=== PATIENT | female | born 1985 | race Caucasian/White ===

== ENCOUNTER → 2018-11-01 | Outpatient (CLI) | payer BC ==
[2016-04-20 16:59] VITALS: BMI 32.3
[~2018-11-01] MED LIST: ACE3 PO; ACET-1966 PO; ACET-3017 PO; CETI10CA8 PO; DOCU240C67 PO; ESCI5TAB10 PO; IBUP600T22 PO; Lanolin TP; NORG1TAB5 PO; ONDA4TAB97 PO; PRE20 PO; PRED-1 PO; PREN-123 PO; PREN-127 PO
[2018-11-01 09:30] LABS: PLATELET COUNT, AUTOMATED 211 K/uL (150-450)
== END ==
LOC: LAB 08:14
PROVIDERS: ATTEND Obstetrics & Gynecology
DX: Z34.91 Encounter for supervision of normal pregnancy, unspecified, first trimester (principal); B96.89 Other specified bacterial agents as the cause of diseases classified elsewhere
CPT/HCPCS: 36415; 81001; 85025; 86592; 86703; 86762; 86850; 86900; 86901; 87088; 87340

== ENCOUNTER → 2018-11-15 | Outpatient (CLI) | payer BC ==
[2016-04-20 16:59] VITALS: BMI 32.3
== END ==
LOC: LAB 11:06
PROVIDERS: ATTEND Obstetrics & Gynecology
DX: Z34.91 Encounter for supervision of normal pregnancy, unspecified, first trimester (principal)
CPT/HCPCS: 87491; 87591

== ENCOUNTER 2018-12-14 09:01 | Emergency (ER) | payer BC ==
[2016-04-20 16:59] VITALS: Wt 71.7 kg
[~2018-12-14 09:01] MED LIST changes: +FLUT16SP19 NS
[2018-12-14] MEDS ORDERED: ONDANSETRON 4 MG/2 ML VIAL IVP ONE ×2 (09:05→10:30)
[2018-12-14] MEDS ORDERED: NS(*) 0.9% 1000 ML BAG 1,000 ML IV ONE ×2 (09:05)
--- NOTE | 2018-12-14 09:18 | ER Report ---
History and Physical Time Seen By MD: 09:14 Hx. of Stated Complaint: ABD PAIN WITH N/V/D HPI/ROS CHIEF COMPLAINT: Vomiting abdominal pain HISTORY OF PRESENT ILLNESS: 33-year-old female otherwise healthy 3 para 2 currently gestation twins 13 weeks comes emergency Department with 1 day of vomiting and diarrhea and abdominal cramping associated with the vomiting and diarrhea. Patient states that her had the exact same symptoms at home diagnosis stomach flu last 24-48 hours and subsequently resolved he's feeling better his symptoms started 2 days before hers. Has no vaginal bleeding or discharge no chest pain or shortness of breath no fever chills having both diarrhea and vomiting patient is able unable to keep up with by mouth fluids and came to the ER for evaluation. Patient has no additional complaints REVIEW OF SYSTEMS: Respiratory: No cough, no dyspnea. Cardiovascular: No chest pain, no palpitations. Gastrointestinal: Vomiting diarrhea abdominal cramping Musculoskeletal: No back pain. Remainder of the 14 system rev: Yes Allergies: Coded Allergies: minocycline (Verified Allergy, Severe, SOB/RASH, 07/20/14) Sulfa (Sulfonamide Antibiotics) (Verified Allergy, Mild, RASH, 07/20/14) amoxicillin (Verified Allergy, Mild, RASH, 07/20/14) Home Meds Active Scripts Fluticasone Prop 50 Mcg Ns (FLONASE 50 MCG NS) 16 Gm [place].susp, 2 SPRAYS NS QDAY, #1 BOT 5 Refills Prov:HENRY GRIGGS MD 12/10/18 Ondansetron Hcl (ZOFRAN) 4 Mg Tablet, 4 MG PO Q6H PRN for NAUSEA/VOMITING, #30 TAB Prov:HENRY GRIGGS MD 11/01/18 Escitalopram Oxalate (LEXAPRO) 5 Mg Tablet, 5 MG PO QDAY, #30 TAB 1 Refill Prov:HENRY GRIGGS MD 03/28/18 Reported Medications Cetirizine Hcl (ZYRTEC) 10 Mg Capsule, 10 MG PO QDAY, CAPSULE 04/20/16 Vits W-Ca,Fe,Fa(<1MG) ( VITAMINS) 1 Each Tablet, 1 EACH PO DAILY, TAB 04/20/16 Reviewed Nurses Notes: Yes Old Medical Records Reviewed: Yes Hx Smoking: No Smoking Status: Never Smoker Exposure to Second Hand Smoke?: No Hx Substance Use Disorder: No Hx Alcohol Use: No Constitutional Vital Sign - Last 24 Hours 12/14/18 09:11 Temp 98.3 Pulse 92 Resp 12 B/P (MAP) 110/77 Pulse Ox 99 O2 Delivery Room Air Physical Exam General Appearance: The patient is alert, has no immediate need for airway protection and no current signs of toxicity. [ ] Eyes: Pupils equal and round no injection. Respiratory: Chest is non tender, lungs are clear to auscultation. Cardiac: regular rate and rhythm [ ] Gastrointestinal: Abdomen is soft and non tender, no masses, bowel sounds normal. Musculoskeletal: Neck: Neck is supple and non tender. Extremities have full range of motion and are non tender. Skin: No rashes or lesions. [ ] DIFFERENTIAL DIAGNOSIS: After history and physical exam differential diagnosis was considered for enteritis gastroenteritis stomach flu Medical Decision Making Data Points Result Diagram: 12/14/1816 12/14/18 0916 Laboratory Hematology Test 12/14/18 09:16 White Blood Count 11.0 k/uL (4.5-11.0) Red Blood Count 4.66 M/uL (4.17-5.56) Hemoglobin 14.5 g/dL (12.0-16.0) Hematocrit 41.6 % (34.0-47.0) Mean Corpuscular Volume 89.3 fL (80.0-96.0) Mean Corpuscular Hemoglobin 31.0 pg (26.0-33.0) Mean Corpuscular Hemoglobin Concent 34.7 g/dL (32.0-36.0) Red Cell Distribution Width 13.6 % (11.5-14.5) Platelet Count 200 K/uL (150-450) Mean Platelet Volume 7.6 fL (7.2-11.1) Neutrophils (%) (Auto) 85.9 % (39.4-72.5) H Lymphocytes (%) (Auto) 10.5 % (17.6-49.6) L Monocytes (%) (Auto) 3.1 % (4.1-12.4) L Eosinophils (%) (Auto) 0.1 % (0.4-6.7) L Basophils (%) (Auto) 0.4 % (0.3-1.4) Nucleated RBC Relative Count (auto) 0.0 /100WBC Neutrophils # (Auto) 9.5 K/uL (2.0-7.4) H Lymphocytes # (Auto) 1.2 K/uL (1.3-3.6) L Monocytes # (Auto) 0.3 K/uL (0.3-1.0) Eosinophils # (Auto) 0.0 K/uL (0.0-0.5) Basophils # (Auto) 0.0 K/uL (0.0-0.1) Nucleated RBC Absolute Count (auto) 0.01 K/uL Chemistry Test 12/14/18 09:16 Sodium Level 138 mmol/L (137-145) Potassium Level 3.7 mmol/L (3.5-5.0) Chloride Level 105 mmol/L (98-107) Carbon Dioxide Level 20 mmol/L (22-31) Blood Urea Nitrogen 4 mg/dl (7-18) Creatinine 0.50 mg/dl (0.52-1.04) Glomerular Filtration Rate Calc > 60.0 Random Glucose 99 mg/dl (75-110) Calcium Level 9.3 mg/dl (8.4-10.2) Total Bilirubin 0.5 mg/dl (0.2-1.3) Aspartate Amino Transf (AST/SGOT) 21 U/L (0-35) Alanine Aminotransferase (ALT/SGPT) 36 U/L (0-56) Alkaline Phosphatase 108 U/L (0-126) Total Protein 7.0 g/dl (6.3-8.2) Albumin 3.9 g/dl (3.5-5.0) Lipase 25 U/L (23-300) Human Chorionic Gonadotropin, Quant 86864 mIU/ml Urinalysis Test 12/14/18 09:02 Urine Color Yellow Urine Clarity Slightly-cloudy Urine pH 5.0 pH (4.8-9.5) Urine Specific [place] 1.014 Urine Protein Negative mg/dL (NEGATIVE) Urine Glucose (UA) Negative mg/dL (NEGATIVE) Urine Ketones 80 mg/dL (NEGATIVE) Urine Blood Negative (NEGATIVE) Urine Nitrite Negative (NEGATIVE) Urine Bilirubin Negative (NEGATIVE) Urine Urobilinogen Negative mg/dL (0.2-1.9) Urine Leukocyte Esterase Trace (NEGATIVE) Urine RBC 2 /HPF (0-2/HPF) Urine WBC 4 /HPF (0-5/HPF) Urine Squamous Epithelial Cells Many /LPF (</=FEW) Urine Bacteria Few /HPF (NONE-FEW) Urine Mucus Few /HPF (NONE-FEW) ED Course/Re-evaluation ED Course ED course 33-year-old female 3 para 2 with twins gestation 13 weeks comes in with vomiting and diarrhea consistent with a probable gastroenteritis she shows some prerenal azotemia on her labs fluid resuscitation initiated antiemetics given she feels significantly better cramping subsided she feels good and feels like she can go home could be hyperemesis gravidarum most likely due to gastroenteritis of viral etiology patient be discharged no antiemetics given 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
[2018-12-14 09:30] LABS: PLATELET COUNT, AUTOMATED 200 K/uL (150-450)
[2018-12-14 10:30] VITALS: BP 98/52
[2018-12-15] MEDS ORDERED: ONDA4TAB9 PO (09:57)
== END 2018-12-14 10:52 | disposition home or self-care (01) ==
LOC: ER 09:04
DX: O99.611 Diseases of the digestive system complicating pregnancy, first trimester (principal); K52.9 Noninfective gastroenteritis and colitis, unspecified; Z3A.13 13 weeks gestation of pregnancy
CPT/HCPCS: 81001; 83690; 84702; 85025; 96361; 96374; 96375; 99283; J2405; J7030; 82040; 82247; 82310; 82374; 82435; 82565; 82947; 84075; 84132; 84155; 84295; 84450; 84460; 84520; 96376

== ENCOUNTER 2018-12-15 19:28 | Observation (INO) | payer BC ==
[~2018-12-15] VITALS: Ht 170.2 cm; Wt 71.2 kg
[~2018-12-15 19:28] MED LIST changes: +ONDA4TAB9 PO
--- NOTE | 2018-12-15 19:35 | ER Report ---
History and Physical Time Seen By MD: 19:32 HPI/ROS CHIEF COMPLAINT: vomiting, abdominal cramping, diarrhea. HISTORY OF PRESENT ILLNESS: This is a 33 year old female. 48 hours of upper abdominal cramping, diarrhea, vomiting. Has been to the ER twice in the last 48 hours, this is her 3rd visit. Thought to be viral gastroenteritis; her recently had similar. She is a 14 week gestational twin . No vaginal bleeding or leakage of fluid. No fevers. Tried Zofran ODT at home but still cannot keep anything down. Mild elevation of white count this morning with left shift, Ketones in urine, but no signs of infection. Metabolic panel with slight decrease in bicarb. Allergies: Coded Allergies: minocycline (Verified Allergy, Severe, SOB/RASH, 12/15/18) Sulfa (Sulfonamide Antibiotics) (Verified Allergy, Mild, RASH, 12/15/18) amoxicillin (Verified Allergy, Mild, RASH, 12/15/18) Home Meds Active Scripts Fluticasone Prop 50 Mcg Ns (FLONASE 50 MCG NS) 16 Gm [place].susp, 2 SPRAYS NS QDAY, #1 BOT 5 Refills Prov:HENRY GRIGGS MD 12/10/18 Ondansetron Hcl (ZOFRAN) 4 Mg Tablet, 4 MG PO Q6H PRN for NAUSEA/VOMITING, #30 TAB Prov:HENRY GRIGGS MD 11/01/18 Escitalopram Oxalate (LEXAPRO) 5 Mg Tablet, 5 MG PO QDAY, #30 TAB 1 Refill Prov:HENRY GRIGGS MD 03/28/18 Reported Medications Cetirizine Hcl (ZYRTEC) 10 Mg Capsule, 10 MG PO QDAY, CAPSULE 04/20/16 Vits W-Ca,Fe,Fa(<1MG) ( VITAMINS) 1 Each Tablet, 1 EACH PO DAILY, TAB 04/20/16 Discontinued Scripts Ondansetron 4 Mg Odt (ONDANSETRON 4 MG ODT) 4 Mg Tab.rapdis, 4 MG PO ONCE for 7 Days, #20 TAB Prov:FAISAL CÁRDENAS MD 12/15/18 Reviewed Nurses Notes: Yes Hx Smoking: No Smoking Status: Never Smoker Exposure to Second Hand Smoke?: No Hx Substance Use Disorder: No Hx Alcohol Use: No Constitutional Vital Sign - Last 24 Hours 12/15/18 19:34 Temp 98.3 Pulse 71 Resp 20 B/P (MAP) 113/67 Pulse Ox 94 Physical Exam General Appearance: Alert, no distress. Eyes: Pupils equal and round no injection. ENT: Normal oral mucosa. Moist mucous membranes. Respiratory: Lungs are clear to auscultation. Cardiac: regular rate and rhythm, normal peripheral perfusion. Gastrointestinal: Abdomen is soft, tender in epigastric and left upper abdomen, no lower tenderness. No CVA tenderness. Musculoskeletal: Non tender. Skin: No rashes or lesions. Neuro: Alert and oriented x3, no focal deficits although a little lightheaded DIFFERENTIAL DIAGNOSIS: After history and physical exam differential diagnosis was considered for possible continued gastroenteritis with failed treatment at home, possible combination of this with the causing the increased vomiting and inability keep anything down. Medical Decision Making Data Points Result Diagram: 12/15/18194312/15/181943 Laboratory Hematology Test 12/15/18 19:44 White Blood Count 13.5 k/uL (4.5-11.0) H Red Blood Count 4.39 M/uL (4.17-5.56) Hemoglobin 13.6 g/dL (12.0-16.0) Hematocrit 39.3 % (34.0-47.0) Mean Corpuscular Volume 89.5 fL (80.0-96.0) Mean Corpuscular Hemoglobin 31.0 pg (26.0-33.0) Mean Corpuscular Hemoglobin Concent 34.7 g/dL (32.0-36.0) Red Cell Distribution Width 13.9 % (11.5-14.5) Platelet Count 215 K/uL (150-450) Mean Platelet Volume 7.8 fL (7.2-11.1) Neutrophils (%) (Auto) 87.8 % (39.4-72.5) H Lymphocytes (%) (Auto) 8.0 % (17.6-49.6) L Monocytes (%) (Auto) 4.0 % (4.1-12.4) L Eosinophils (%) (Auto) 0.1 % (0.4-6.7) L Basophils (%) (Auto) 0.1 % (0.3-1.4) L Nucleated RBC Relative Count (auto) 0.1 /100WBC Neutrophils # (Auto) 11.9 K/uL (2.0-7.4) H Lymphocytes # (Auto) 1.1 K/uL (1.3-3.6) L Monocytes # (Auto) 0.5 K/uL (0.3-1.0) Eosinophils # (Auto) 0.0 K/uL (0.0-0.5) Basophils # (Auto) 0.0 K/uL (0.0-0.1) Nucleated RBC Absolute Count (auto) 0.01 K/uL Chemistry Test 12/15/18 19:44 Sodium Level 137 mmol/L (137-145) Potassium Level 3.5 mmol/L (3.5-5.0) Chloride Level 105 mmol/L (98-107) Carbon Dioxide Level 20 mmol/L (22-31) Blood Urea Nitrogen 3 mg/dl (7-18) Creatinine 0.50 mg/dl (0.52-1.04) Glomerular Filtration Rate Calc > 60.0 Random Glucose 100 mg/dl (75-110) Calcium Level 8.8 mg/dl (8.4-10.2) Total Bilirubin 0.4 mg/dl (0.2-1.3) Aspartate Amino Transf (AST/SGOT) 22 U/L (0-35) Alanine Aminotransferase (ALT/SGPT) 38 U/L (0-56) Alkaline Phosphatase 90 U/L (0-126) Total Protein 6.3 g/dl (6.3-8.2) Albumin 3.4 g/dl (3.5-5.0) Urinalysis Test 12/15/18 19:31 Urine Color Yellow Urine Clarity Clear Urine pH 5.0 pH (4.8-9.5) Urine Specific [place] 1.016 Urine Protein Negative mg/dL (NEGATIVE) Urine Glucose (UA) Negative mg/dL (NEGATIVE) Urine Ketones 80 mg/dL (NEGATIVE) Urine Blood Negative (NEGATIVE) Urine Nitrite Negative (NEGATIVE) Urine Bilirubin Negative (NEGATIVE) Urine Urobilinogen Negative mg/dL (0.2-1.9) Urine Leukocyte Esterase Negative (NEGATIVE) Urine RBC <1 /HPF (0-2/HPF) Urine WBC 2 /HPF (0-5/HPF) Urine Squamous Epithelial Cells Many /LPF (</=FEW) Urine Bacteria Few /HPF (NONE-FEW) Urine Mucus Few /HPF (NONE-FEW) ED Course/Re-evaluation Clinical Indication for ER IV: Hydration, IV Access ED Course White count mild elevation, essentially unchanged from this morning, with similar left shift. Mild decreased bicarb, BUN/Cr and other electrolytes okay. No sign of urinary tract infection. Patient received a liter of normal saline and Zofran. Still with cramping, so given IV Acetaminophen. Discussed care with Dr. Pyle, who accepted the patient for admission. Decision to Disposition Date: Dec 15, 2018 Decision to Disposition Time: 20:56 Depart Departure Latest Vital Signs Vital Signs Date Time Temp Pulse Resp B/P (MAP) Pulse Ox O2 Delivery O2 Flow Rate FiO2 12/15/18 19:34 98.3 71 20 113/67 94 Impression: Primary Impression: Nausea & vomiting Condition: Improved Disposition: Admitted from ER Referrals: IVETTE AGUILAR PA-C (PCP) Problem Qualifiers Primary Impression: Nausea & vomiting Vomiting type: unspecified Vomiting Intractability: non-intractable Elian lified Codes: R11.2 - Nausea with vomiting, unspecified HUNTER RODRIGUEZ MD Dec 15, 2018 19:35
[2018-12-15] MEDS ORDERED: NS(*) 0.9% 1000 ML BAG 1,000 ML IV ONE (20:05)
[2018-12-15] MEDS ORDERED: ONDANSETRON 4 MG/2 ML VIAL IVP ONE (20:05)
[2018-12-15 20:10] LABS: PLATELET COUNT, AUTOMATED 215 K/uL (150-450)
[2018-12-15] MEDS ORDERED: ACETAMINOPHEN(*)1000 MG/100 ML 100 ML IVPB ONE (21:10)
[2018-12-15] MEDS ORDERED: ACETAMINOPHEN 325 MG TAB PO PRN (21:30)
[2018-12-15] MEDS ORDERED: FAMOTIDINE(*) 20MG/50ML PREMIX 50 ML IVPB ONE (21:30)
[2018-12-15 22:01] VITALS: BP 106/68
[2018-12-15] MEDS: diphenhydrAMINE 50 MG/ML VIAL IVP SCH (22:28)
[2018-12-15] MEDS: DLR(*) 1000 ML BAG 1,000 ML IV SCH (22:28)
[2018-12-15] MEDS: PROMETHAZINE 25 MG/ML 1 ML AMP IVP SCH (22:28)
[2018-12-16] MEDS: ONDANSETRON 4 MG/2 ML VIAL IVP SCH ×4 (01:24→19:30)
[2018-12-16] MEDS ORDERED: ONDANSETRON 4 MG/2 ML VIAL IVP ONE (02:25)
[2018-12-16] MEDS: diphenhydrAMINE 50 MG/ML VIAL IVP SCH ×4 (03:22→23:02)
[2018-12-16 03:30] VITALS: BP 109/71
[2018-12-16] MEDS: PROMETHAZINE 25 MG/ML 1 ML AMP IVP SCH ×3 (05:18→21:40)
[2018-12-16] MEDS: DLR(*) 1000 ML BAG 1,000 ML IV SCH ×3 (05:18→19:10)
[2018-12-16 08:00] VITALS: BP 89/57
[2018-12-16 08:40] VITALS: Ht 170.2 cm; Wt 71.2 kg
--- NOTE | 2018-12-16 09:14 | History & Physical ---
History of Present Illness Age of Patient: 33 : 3 Para or TPAL: 2 Estimated Gestational Age: 14 Chief Complaint Nausea, vomiting, epigastric pain x 48 hours, 14 week alexandro twin History of Present Illness PT reports that she has had progressively worsening n/v/epigastric pain x 48 hours. She has been seen in the ED 3 times over the weekend. Her was recently ill with similar symptoms. She denies fever, pelvic pain or bleeding. She has been using oral zofran with no improvement. Pt has not had this type of n/v in the until 2 days ago. She has no h/o hyperemesis. 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 They live also with their 3 year-old son. Denies use of alcohol, tobacco, or illicit drugs. Family History: Patient reports no known family medical history. Med Rec Home Meds Active Scripts Fluticasone Prop 50 Mcg Ns (FLONASE 50 MCG NS) 16 Gm [place].susp, 2 SPRAYS NS QDAY, #1 BOT 5 Refills Prov:HENRY GRIGGS MD 12/10/18 Ondansetron Hcl (ZOFRAN) 4 Mg Tablet, 4 MG PO Q6H PRN for NAUSEA/VOMITING, #30 TAB Prov:HERNY GRIGGS MD 11/01/18 Escitalopram Oxalate (LEXAPRO) 5 Mg Tablet, 5 MG PO QDAY, #30 TAB 1 Refill Prov:HENRY GRIGGS MD 03/28/18 Reported Medications Cetirizine Hcl (ZYRTEC) 10 Mg Capsule, 10 MG PO QDAY, CAPSULE 04/20/16 Vits W-Ca,Fe,Fa(<1MG) ( VITAMINS) 1 Each Tablet, 1 EACH PO DAILY, TAB 04/20/16 Discontinued Scripts Ondansetron 4 Mg Odt (ONDANSETRON 4 MG ODT) 4 Mg Tab.rapdis, 4 MG PO ONCE for 7 Days, #20 TAB Prov:FAISAL CÁRDENAS MD 12/15/18 Review of Systems Constitutional: Weight Gain; No Fever, No Weight Loss, No Chills, No Night Sweats Gastrointestinal: Nausea, Vomiting, Diarrhea, Abdominal Pain (epigastric) Genitourinary: No Dysuria Psychiatric: Anxiety Exam General Exam Vital Signs Vital Signs Date Time Temp Pulse Resp B/P (MAP) Pulse Ox O2 Delivery O2 Flow Rate FiO2 12/16/18 08:00 98.0 79 16 89/57 (68) 96 Room Air General Apperance: Alert/Awake/No Acute Distress Neuro: No Gross deficits Respiratory: No Respiratory Distress Abdomen: Soft, Non-Tender, Non-Distended Extremities: No Cyanosis,Clubbing or Edema Integumentary: Skin Intact without Lesions or Rash Psychological: Alert & Oriented X3, Appropriate Mood & Affect Vaginal Discharge/Fluid?: Other (SVE deferred) Medical Decision Making Data Points Result Diagram: 12/15/18194312/15/181943 Pre-Admit Course Medical Record Review: Yes Assessment and Plan Problems: (1) Viral gastroenteritis Status: Acute Assessment & Plan: Supportive care, IVF, NPO, antiemetics. Once nausea subsides will try trial diet. Will also check lipase level as pt has persistent epigast neo pain. (2) , twins, antepartum Assessment & Plan: Will do limited BSUS today to check FHTs. No intervention for at this time. Problem Qualifiers (1) , twins, antepartum: Multiple gestation type: dichorionic and diamniotic Qualified Codes: O30.049 - Twin , dichorionic/diamniotic, unspecified trimester LACEY FINNEGAN DO Dec 16, 2018 09:05
--- NOTE | 2018-12-16 09:38 | OB/GYN Progress Note ---
OB Objective Physical Exam Vital Signs Date Time Temp Pulse Resp B/P (MAP) Pulse Ox O2 Delivery O2 Flow Rate FiO2 12/16/18 08:00 98.0 79 16 89/57 (68) 96 Room Air Intake and Output 12/16/18 07:02 Intake Total 1150 ml Output Total 500 ml Balance 650 ml Intake IV Total 1150 ml Output Urine Total 450 ml Emesis 50 ml # Voids 1 # Emes[place] 1 General Appearance: Alert/Awake/No Acute Distress Neurological: No Gross deficits Respiratory: No Respiratory Distress Extremities: No Cyanosis,Clubbing or Edema Integumentary: Skin Intact without Lesions or Rash Psychological: Alert & Oriented X3, Appropriate Mood & Affect Result Diagram: 12/15/18194312/15/181943 Imaging Limited BSUS performed by Dr. Pyle showing viable alexandro with active heart rates and good movement from both A and B. A was cephalic, B also cephalic. Normal appearing amniotic fluid levels, normal appearing placenta. Assessment and Plan Problems: (1) Viral gastroenteritis Status: Acute Assessment & Plan: Lipase level pending, continue supportive care at this time. (2) , twins, antepartum Problem Qualifiers (1) , twins, antepartum: Multiple gestation type: dichorionic and diamniotic Qualified Codes: O30.049 - Twin , dichorionic/diamniotic, unspecified trimester LACEY PYLE DO Dec 16, 2018 09:38
[2018-12-16] MEDS: ACETAMINOPHEN 650 MG SUPP PR PRN ×3 (10:02→21:15)
[2018-12-16 11:39] VITALS: BP 100/63
[2018-12-16 15:31] VITALS: BP 122/78
[2018-12-16] MEDS ORDERED: FAMOTIDINE(*) 20MG/50ML PREMIX 50 ML IVPB ONE (16:30)
[2018-12-16 19:30] VITALS: BP 113/75
[2018-12-16 23:05] VITALS: BP 105/65
[2018-12-17] MEDS ORDERED: SUCRALFATE 1 GM TAB PO ONE (02:00)
[2018-12-17] MEDS: ONDANSETRON 4 MG/2 ML VIAL IVP SCH (02:35)
[2018-12-17] MEDS: DLR(*) 1000 ML BAG 1,000 ML IV SCH ×2 (02:50→06:50)
[2018-12-17] MEDS: diphenhydrAMINE 50 MG/ML VIAL IVP SCH (03:43)
[2018-12-17 03:45] VITALS: BP 110/71
[2018-12-17] MEDS: ACETAMINOPHEN 650 MG SUPP PR PRN (04:06)
[2018-12-17] MEDS: PROMETHAZINE 25 MG/ML 1 ML AMP IVP SCH (05:58)
[2018-12-17 07:58] VITALS: BP 100/66
[2018-12-17] MEDS ORDERED: ONDANSETRON 4 MG ODT TABDP SL PRN (08:30)
--- NOTE | 2018-12-17 08:36 | OB/GYN Progress Note ---
OB Subjective Progress Notes Subjective Mark is feeling much better. She is tolerating minimal Jello and saltine crackers this morning. She continues on IV fluids. She is on a regimen of IV Zofran 4 mg, Benadryl 25 mg and Phenergan 25 mg. She did not have any diarrhea yesterday, but did have an episode of diarrhea this morning. She has not vomited since yesterday. She still feels a little bit weak. Her stomach still feels a little off. However, she thinks she is improving. She denies any vaginal bleeding or other concerns. OB Objective Physical Exam Vital Signs Date Time Temp Pulse Resp B/P (MAP) Pulse Ox O2 Delivery O2 Flow Rate FiO2 12/17/18 07:58 98.0 71 18 100/66 (77) 12/17/18 03:45 Room Air 12/16/18 23:05 95 Intake and Output 12/17/18 07:02 Intake Total 2000 ml Output Total 1150 ml Balance 850 ml Intake Oral 50 ml IV Total 1950 ml Output Urine Total 400 ml Urine/Stool Mix 600 ml Emesis 150 ml # Voids 3 # Bowel Movements 1 # Emeses 3 General Appearance: Alert/Awake/No Acute Distress Neurological: No Gross deficits Cardiovascular: Normal Rhythm & Peripheral Pulses Respiratory: No Respiratory Distress, Clear to Auscultation Abdomen: Soft, Non-Tender, Non-Distended Extremities: No Cyanosis,Clubbing or Edema Integumentary: Skin Intact without Lesions or Rash Psychological: Alert & Oriented X3, Appropriate Mood & Affect Result Diagram: 12/15/18194312/15/181943 Assessment and Plan Problems: (1) Viral gastroenteritis Status: Acute Assessment & Plan: 33-year-old at 14w0d presented with evidence of gastroenteritis. She has had 3 days of diarrhea, nausea and vomiting. With her current regimen of IV Zofran, Benadryl and Phenergan she is doing much better. She is now able to tolerate minimal oral including Jello and saltines. We will start transitioning to oral medications one at a time throughout the day. If she is able to transition fully, I anticipate she will be discharged today. If not, we will keep her another day. (2) , twins, antepartum Assessment & Plan: Di:Di twins. FHT noted on 12/16/[address] Pyle BSUS. Problem Qualifiers (1) , twins, antepartum: Multiple gestation type: dichorionic and diamniotic Qualified Codes: O30.049 - Twin , dichorionic/diamniotic, unspecified trimester HENRY GRIGGS MD Dec 17, 2018 08:36
[2018-12-17] MEDS ORDERED: diphenhydrAMINE 25 MG CAP PO PRN (10:00)
[2018-12-17 12:00] VITALS: BP 113/64
--- NOTE | 2018-12-17 13:10 | OB/GYN Progress Note ---
OB Subjective Progress Notes Subjective She is feeling much better. She has tolerated chicken noodle soup for lunch without any nausea or vomiting. She currently has oral Zofran and oral Benadryl on board. She is comfortable going home this afternoon. OB Objective Physical Exam Vital Signs Date Time Temp Pulse Resp B/P (MAP) Pulse Ox O2 Delivery O2 Flow Rate FiO2 12/17/18 12:00 98.4 75 18 113/64 (80) 95 Room Air Intake and Output 12/17/18 07:02 Intake Total 2000 ml Output Total 1150 ml Balance 850 ml Intake Oral 50 ml IV Total 1950 ml Output Urine Total 400 ml Urine/Stool Mix 600 ml Emesis 150 ml # Voids 3 # Bowel Movements 1 # [place]es[place] 3 General Appearance: Alert/Awake/No Acute Distress Neurological: No Gross deficits Respiratory: No Respiratory Distress Integumentary: Skin Intact without Lesions or Rash Psychological: Alert & Oriented X3, Appropriate Mood & Affect Result Diagram: 12/15/18194312/15/181943 Assessment and Plan Problems: (1) Viral gastroenteritis Status: Acute Assessment & Plan: 33-year-old at 14w0d presented with evidence of gastroenteritis. She has had 3 days of diarrhea, nausea and vomiting. She has been able to transition to oral medication. She also tolerated chicken noodle soup for lunch. She is requesting discharge to home this afternoon. She already has Zofran ODT and Benadryl at home. She will be given to oral Phenergan to go home with. She is scheduled for a follow-up appointment on 12/20/18. (2) , twins, antepartum Assessment & Plan: Di:Di twins. FHT noted on 12/16/[address] Pyle BS. Problem Qualifiers (1) , twins, antepartum: Multiple gestation type: dichorionic and diamniotic Qualified Codes: O30.049 - Twin , dichorionic/diamniotic, unspecified trimester HENRY GRIGGS MD Dec 17, 2018 13:10
--- NOTE | 2018-12-17 13:12 | OB/GYN Discharge Summary ---
Discharge Summary Reason for Hosp/Final Diag: (1) Viral gastroenteritis Status: Acute Hospital Course & Plan: 33-year-old at 14w0d presented with evidence of gastroenteritis. She has had 3 days of diarrhea, nausea and vomiting. She has been able to transition to oral medication. She also tolerated chicken noodle soup for lunch. She is requesting discharge to home this afternoon. She already has Zofran ODT and Benadryl at home. She will be given to oral Phenergan to go home with. She is scheduled for a follow-up appointment on 12/20/18. (2) , twins, antepartum Hospital Course & Plan: Di:Di twins. FHT noted on 12/16/[address] Pyle BSUS. Lates Vital Signs Vital Signs Date Time Temp Pulse Resp B/P (MAP) Pulse Ox O2 Delivery O2 Flow Rate FiO2 12/17/18 12:00 98.4 75 18 113/64 (80) 95 Room Air Weight (Pounds): 157 Result Diagram: 12/15/18194312/15/181943 Condition: Improved Discharge: Home, Self Shelter Meds Active Scripts Fluticasone Prop 50 Mcg Ns (FLONASE 50 MCG NS) 16 Gm [place].susp, 2 SPRAYS NS QDAY, #1 BOT 5 Refills Prov:HENRY GRIGGS MD 12/10/18 Ondansetron Hcl (ZOFRAN) 4 Mg Tablet, 4 MG PO Q6H PRN for NAUSEA/VOMITING, #30 TAB Prov:HENRY GRIGGS MD 11/01/18 Escitalopram Oxalate (LEXAPRO) 5 Mg Tablet, 5 MG PO QDAY, #30 TAB 1 Refill Prov:HENRY GRIGGS MD 03/28/18 Reported Medications Cetirizine Hcl (ZYRTEC) 10 Mg Capsule, 10 MG PO QDAY, CAPSULE 04/20/16 Vits W-Ca,Fe,Fa(<1MG) ( VITAMINS) 1 Each Tablet, 1 EACH PO DAILY, TAB 04/20/16 Discontinued Scripts Ondansetron 4 Mg Odt (ONDANSETRON 4 MG ODT) 4 Mg Tab.rapdis, 4 MG PO ONCE for 7 Days, #20 TAB Prov:FAISAL CÁRDENAS MD 12/15/18 Follow up 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
[2018-12-17] MEDS ORDERED: PROMETHAZINE HCL 25 MG TAB TH 2 TAB/BOTTLE PO ONE (13:45)
[2018-12-17] MEDS ORDERED: PROMETHAZINE HCL 25 MG TAB PO PRN (14:00)
== END 2018-12-17 13:44 | disposition home or self-care (01) ==
LOC: ER 19:41 → PED 21:15
PROVIDERS: ADMIT Obstetrics & Gynecology; ATTEND Obstetrics & Gynecology
DX: O26.892 Other specified pregnancy related conditions, second trimester (principal); O30.042 Twin pregnancy, dichorionic/diamniotic, second trimester; Z3A.14 14 weeks gestation of pregnancy
CPT/HCPCS: 36415; 81001; 83690; 85025; 96361; 96374; 96375; 99284; G0378; J0131; J1200; J2405; J2550; J7030; Q0163; S0119; 82040; 82247; 82310; 82374; 82435; 82565; 82947; 84075; 84132; 84155; 84295; 84450; 84460; 84520